=== PATIENT | male | born 1990 | race Caucasian/White ===

== ENCOUNTER 2019-05-01 07:19 | Emergency (ER) | payer OTHER ==
[2019-05-01] MEDS ORDERED: METOCLOPRAMIDE INJ 10MG/2ML VIAL (J2765) IV ONE (07:45)
[2019-05-01] MEDS ORDERED: NS 1,000 ML IV ONE ×3 (07:45→11:45)
[2019-05-01 08:36] LABS: BASO % 0.3 % (0.0-1.0); EOS # 0.1 10^3/uL (0.0-0.50); EOS % 0.8 % (0.0-3.0); HEMATOCRIT 40.6 % (42.0-52.0); HEMOGLOBIN 14.2 g/dl (13.5-17.5); LYMPH # 0.8 10^3/uL (1.5-6.5); LYMPH % 13.4 % (24.0-44.0); MEAN CORPUSCULAR HEMOGLOBIN 31.6 pg (27.0-33.0); MEAN CORPUSCULAR VOLUME 90.4 fl (80.0-96.0); MONO # 0.6 10^3/uL (0.0-0.8); MONO % 9.3 % (0.0-5.0); NEUTROPHILS # 4.5 10^3/uL (1.8-7.7); NEUTROPHILS % 75.9 % (36.0-66.0); PLATELET COUNT, AUTOMATED 165 10^3/uL (150-450); RED BLOOD COUNT 4.49 10^6/uL (4.30-6.10)
[2019-05-01 08:47] LABS: INR 1.07; PROTHROMBIN TIME 13.6 SECONDS (11.8-14.0)
[2019-05-01 08:48] LABS: PARTIAL THROMBOPLASTIN TIME 26.9 SECONDS (25.0-38.4)
[2019-05-01 09:08] LABS: ALBUMIN 3.6 GM/DL (3.2-5.2); ALT/SGPT 103 U/L (12-78); BILIRUBIN,DIRECT 0.2 MG/DL (0.0-0.2); BILIRUBIN,TOTAL 0.6 MG/DL (0.2-1.0); BLOOD UREA NITROGEN 7 MG/DL (7-18); CALCIUM LEVEL 8.6 MG/DL (8.5-10.1); CARBON DIOXIDE LEVEL 29 MEQ/L (21-32); CHLORIDE LEVEL 102 MEQ/L (98-107); CREATININE FOR GFR 1.06 MG/DL (0.70-1.30); FREE T4 1.18 NG/DL (0.76-1.46); GLOMERULAR FILTRATION RATE > 60.0 (>60); GLUCOSE, FASTING 103 MG/DL (70-100); POTASSIUM SERUM 4.2 MEQ/L (3.5-5.1); SODIUM LEVEL 137 MEQ/L (136-145); THYROID STIMULATING HORMONE 0.861 uIU/ML (0.358-3.740)
[2019-05-01] MEDS ORDERED: KETOROLAC 30 MG/ML VIAL (J1885) IV ONE (11:45)
[2019-05-01 13:10] VITALS: BP 125/62
--- NOTE | 2019-05-01 15:38 | ECGEPIP ---
[facility] - ED Test Date: 2019-05-01 Pat Name: DEONTE HAYS Department: Room: - Gender: Male [employer]: william : 1990 Requested By: WILBERT Vanegas Order Number: [id number] Reading MD: Sheba Murdock Measurements Intervals [place] Rate: 61 P: 46 NC: 170 QRS: QRSD: 104 T: QT: 415 QTc: 421 Interpretive Statements SINUS RHYTHM BORDERLINE LEFT AXIS DEVIATION INCOMPLETE RIGHT BUNDLE BRANCH BLOCK NSTTW abnormalities No prior Electronically Signed on 05-01-2019 15:38:09 EDT by Sheba Murdock
[2019-05-02] MEDS ORDERED: REGL10TA6 PO (03:32)
== END 2019-05-01 13:25 | disposition home or self-care (01) ==
LOC: M ED 07:19
DX: R55 Syncope and collapse (principal); R50.9 Fever, unspecified; S06.0X0A Concussion without loss of consciousness, initial encounter; W19.XXXA Unspecified fall, initial encounter; Y92.9 Unspecified place or not applicable; R51 Headache; R94.02 Abnormal brain scan

== ENCOUNTER 2019-05-01 19:59 | Emergency (ER) | payer OTHER ==
[~2019-05-01] VITALS: Ht 182.9 cm; Wt 90.9 kg
--- NOTE | 2019-05-01 23:30 | REPVR ---
EXAM: CT Head Without Contrast EXAM DATE/TIME: 05/01/2019 10:48 PM CLINICAL HISTORY: 28 years old, male; Pain; Headache not specified; Additional info: Worsening BAILEY TECHNIQUE: Imaging protocol: Axial computed tomography images of the head without contrast. Radiation optimization: All CT scans at this facility use at least one of these dose optimization techniques: automated exposure control; mA and/or kV adjustment per patient size (includes targeted exams where dose is matched to clinical indication); or iterative reconstruction. COMPARISON: CT Head without contrast 05/01/2019 7:48 AM FINDINGS: Brain: Small low-attenuation focus in the inferior left frontal lobe which may reflect old infarct or cyst but is similar to the prior study. Ventricles: Normal. No ventriculomegaly. Bones/joints: Unremarkable. No acute fracture. Sinuses: Visualized sinuses are unremarkable. No fluid levels. Mastoid air cells: Visualized mastoid air cells are well aerated. No mastoid effusion. Soft tissues: Unremarkable. IMPRESSION: 1. There has been no change since 05/01/2019. No acute interval intracranial process is identified. 2. Small low-attenuation area in the inferior left frontal lobe which is unchanged from the prior study and may reflect cyst or focus of old infarct. Electronically signed by: Vini Tran On 05/01/2019 23:30:14 PM
[2019-05-02 01:39] LABS: APPEARANCE, CSF CLEAR (CLEAR); COLOR, CSF COLORLESS (COLORLESS); CSF TUBE# CELL CNT TUBE 1
[2019-05-02 01:46] LABS: APPEARANCE, CSF CLEAR (CLEAR); COLOR, CSF COLORLESS (COLORLESS); CSF TUBE# CELL CNT TUBE 4
[2019-05-02 01:49] LABS: CSF TUBE# GLU TUBE 3; CSF TUBE# TP TUBE 3; GLUCOSE CSF 59 MG/DL (40-75); TOTAL PROTEIN,CSF 60 MG/DL (15-45)
[2019-05-02] MEDS ORDERED: KETOROLAC 30 MG/ML VIAL (J1885) IV ONE (02:00)
[2019-05-02] MEDS ORDERED: NS 1,000 ML IV ONE (02:00)
[2019-05-02] MEDS ORDERED: dexameTHASONE 20 MG/5 ML VIAL (J1100) IV ONE (02:00)
[2019-05-02] MEDS ORDERED: METOCLOPRAMIDE INJ 10MG/2ML VIAL (J2765) IV ONE (02:00)
[2019-05-02] MEDS ORDERED: diphenhydrAMINE INJ 50MG/ML VIAL (J1200) IV ONE (02:00)
[2019-05-02] MEDS ORDERED: REGL10TA6 PO (03:32)
[2019-05-02 03:55] VITALS: BP 108/58
--- NOTE | 2019-05-07 15:24 | ED PDOC ---
Post-Departure Follow-Up certified letter sent to pt re formal read of ct head. see report. please obtain pcp name and fax report to pcp Karri Guy MD May 07, 2019 15:24
== END 2019-05-02 04:03 | disposition home or self-care (01) ==
LOC: M ED 19:59
DX: S06.0X0A Concussion without loss of consciousness, initial encounter (principal); W19.XXXA Unspecified fall, initial encounter; Y92.9 Unspecified place or not applicable; R51 Headache; R50.9 Fever, unspecified; R94.02 Abnormal brain scan
CPT/HCPCS: 70450; 71046; 80048; 80076; 81001; 82945; 84157; 84439; 84443; 85025; 85610; 85730; 87040; 87070; 87205; 87483; 89050; 93005; 93041; 94760; 96361; 96374; 96375; 99284; 99285; J1100; J1200; J1885; J2765

== ENCOUNTER 2020-09-04 15:36 | Emergency (ER) | payer OTHER ==
[~2020-09-04] VITALS: Ht 182.9 cm; Wt 89.0 kg
[~2020-09-04 15:36] MED LIST: REGL10TA6 PO
[2020-09-04 15:37] VITALS: BP 131/65
[2020-09-04] MEDS ORDERED: FLOV50AE IN (16:09)
[2020-09-04] MEDS ORDERED: PROAAER10 INH (16:09)
[2020-09-04] MEDS ORDERED: NS 1,000 ML IV ONE (17:30)
[2020-09-04 17:55] LABS: BASO % 0.3 % (0.0-1.0); EOS # 0.1 10^3/uL (0.0-0.5); EOS % 1.1 % (0.0-3.0); HEMATOCRIT 44.3 % (42.0-52.0); HEMOGLOBIN 14.6 g/dl (13.5-17.5); LYMPH # 1.8 10^3/uL (1.5-5.0); LYMPH % 23.8 % (24.0-44.0); MEAN CORPUSCULAR HEMOGLOBIN 31.5 pg (27.0-33.0); MEAN CORPUSCULAR VOLUME 95.5 fl (80.0-96.0); MONO # 0.5 10^3/uL (0.0-0.8); MONO % 6.2 % (0.0-5.0); NEUTROPHILS # 5.2 10^3/uL (1.5-8.5); NEUTROPHILS % 68.2 % (36.0-66.0); PLATELET COUNT, AUTOMATED 248 10^3/uL (150-450); RED BLOOD COUNT 4.64 10^6/uL (4.30-6.10); WHITE BLOOD COUNT 7.6 10^3/uL (4.0-10.0)
[2020-09-04 18:24] LABS: ALBUMIN 4.4 GM/DL (3.2-5.2); ALT/SGPT 49 U/L (12-78); BILIRUBIN,DIRECT 0.1 MG/DL (0.0-0.2); BILIRUBIN,TOTAL 0.5 MG/DL (0.2-1.0); BLOOD UREA NITROGEN 13 MG/DL (7-18); CALCIUM LEVEL 9.5 MG/DL (8.5-10.1); CARBON DIOXIDE LEVEL 31 MEQ/L (21-32); CHLORIDE LEVEL 104 MEQ/L (98-107); CPK CREATINE PHOSPHOKINASE 140 U/L (39-308); CREATININE FOR GFR 1.06 MG/DL (0.70-1.30); GLOMERULAR FILTRATION RATE > 60.0 (>60); GLUCOSE, FASTING 94 MG/DL (70-100); LIPASE 129 U/L (73-393); POTASSIUM SERUM 4.3 MEQ/L (3.5-5.1); SODIUM LEVEL 141 MEQ/L (136-145); TOTAL PROTEIN 7.9 GM/DL (6.4-8.2)
--- NOTE | 2020-09-04 19:38 | REPVR ---
PROCEDURE INFORMATION: Exam: CT Abdomen And Pelvis Without Contrast Exam date and time: 09/04/2020 6:59 PM Age: 30 years old Clinical indication: Other: Hematuria; Additional info: Hematuria, R/O stone TECHNIQUE: Imaging protocol: Computed tomography of the abdomen and pelvis without contrast. Radiation optimization: All CT scans at this facility use at least one of these dose optimization techniques: automated exposure control; mA and/or kV adjustment per patient size (includes targeted exams where dose is matched to clinical indication); or iterative reconstruction. COMPARISON: No relevant prior studies available. FINDINGS: Liver: Normal. No mass. Gallbladder and bile ducts: Normal. No calcified stones. No ductal dilation. Pancreas: Normal. No ductal dilation. Spleen: Normal. No splenomegaly. Adrenal glands: Normal. No mass. Kidneys and ureters: Normal. No hydronephrosis. Stomach and bowel: Unremarkable. No obstruction. No mucosal thickening. Appendix: No evidence of appendicitis. Intraperitoneal space: Unremarkable. No free air. No significant fluid collection. Vasculature: Unremarkable. No abdominal aortic aneurysm. Lymph nodes: Unremarkable. No enlarged lymph nodes. Urinary bladder: Unremarkable as visualized. Reproductive: The prostate gland demonstrates mild hyperplasia. Bones/joints: Unremarkable. No acute fracture. Soft tissues: There is a small umbilical hernia. There is no evidence of incarceration. IMPRESSION: 1. Mild prostatic hyperplasia. 2. Small umbilical hernia. 3. No urinary tract calculi demonstrated. Electronically signed by: Lucio Mg On 09/04/2020 19:37:49 PM
== END 2020-09-04 20:17 | disposition home or self-care (01) ==
LOC: M ED 15:36
DX: R31.0 Gross hematuria (principal); R30.0 Dysuria; N40.1 Benign prostatic hyperplasia with lower urinary tract symptoms; K42.9 Umbilical hernia without obstruction or gangrene; J45.909 Unspecified asthma, uncomplicated; Z79.51 Long term (current) use of inhaled steroids